=== PATIENT | female | born 1990 | race Two or more races ===

== ENCOUNTER 2018-11-08 12:12 | Emergency (ER) | payer BC ==
--- NOTE | 2018-11-08 13:33 | EDM.PDOC ---
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 Patient is a very poor historian. Initially reports to triage that her last menstrual period was October 14, 2018. Upon further interview with her it sounds as if her last normal menstrual period was the beginning of August. She reports mid September she had a shorter, rn advanced menstrual cycle. She reports now she is now been bleeding for the last week to week and a half. Reports her menstrual cycles are irregular. Reports that it was initially darker blood and then it lightened up. Now over the last 2 day she's bleeding more red blood. She is going to maybe 2-3 pads and a normal day. patient reports that she took 2 at home test a week apart beginning of October and these were both positive. She is a . She does not know her blood type and she may have received Rhogram in the past with previous ; she is not sure. Patient is reporting symptoms of nausea, headaches, vomiting and lightheadedness. She denies any urinary symptoms, syncope or back pain. She reports that she had some pain initially on the right side of her pelvis and is now located on the left side. Has been taking ibuprofen for the discomfort. Last took 600 mg of ibuprofen this morning. Patient is from [place]. Relocated to [place] about 2 months ago. She's not yet established with any DEHYDRATOR TENDER provider. Lower Abdominal Pain Score (Numeric/FACES): 1 - Related Data Allergies Allergy/AdvReac Type Severity Reaction Status Date / Time Penicillins Allergy Hives Verified 11/08/18 12:25 Home Meds: Home Meds Ibuprofen 200 mg PO Q6HR 11/08/18 [History] Past Medical History - Past Health History Medical/Surgical History: Denies Medical/Surgical History DEHYDRATOR TENDER History: Reports: , Spontaneous - Past Surgical History HEENT Surgical History: Reports: Oral Surgery, Tonsillectomy Social & Family History - Family History Family Medical History: Noncontributory - Tobacco Use Smoking Status *Q: Current Some Day Smoker Years of Tobacco use: 5 Packs/Tins Daily: 0.2 Used Tobacco, but Quit: No Second Hand Smoke Exposure: Yes - Caffeine Use Caffeine Use: Reports: Coffee, Energy Drinks, Soda, Tea - Recreational Drug Use Recreational Drug Use: Yes ED ROS GENERAL - Review of Systems Review Of Systems: See Below GI/Abdominal: Reports: Abdominal Pain (reports pain initally on the right lower quadrant not on the left lower quadrant), Nausea, Vomiting : Reports: No Symptoms, Other (vaginal bleeding ). Denies: Dysuria Musculoskeletal: Denies: Back Pain Neurological: Reports: Dizziness, Headache. Denies: Syncope ED EXAM - Physical Exam Exam: See Below Exam Limited By: No Limitations General Appearance: Alert, WD/WN, No Apparent Distress Ears: Normal External Exam Nose: Normal Inspection Throat/Mouth: Normal Inspection, Normal Voice Respiratory/Chest: No Respiratory Distress, Lungs Clear, Normal Breath Sounds Cardiovascular: Normal Peripheral Pulses, Regular Rate, Rhythm, No Murmur GI/Abdominal Exam: Normal Bowel Sounds, Soft, Tender (mild tenderness to the RLQ , suprapubic and LLQ areas) Neurological: Alert, Oriented, Normal Cognition Psychiatric: Normal Affect, Normal Mood Skin Exam: Warm, Dry, Normal Color Course - Vital Signs Last Recorded V/S: Last Vital Signs Temp 97.4 F 11/08/18 14:20 Pulse 84 11/08/18 14:20 Resp 18 11/08/18 14:20 BP 115/69 11/08/18 12:21 Pulse Ox 97 11/08/18 14:20 - Orders/Labs/Meds Orders: Active Orders 24 hr Category Date Time Status PATIENT RETYPE [BBK] Stat Lab 11/08/18 13:15 Results TYPE AND SCREEN [BBK] Stat Lab 11/08/18 13:15 Received Labs: Laboratory Tests 11/08/18 11/08/18 11/08/18 Range/Units 13:15 13:15 13:15 WBC 7.40 (3.98-10.04) K/mm3 RBC 4.41 (3.98-5.22) M/mm3 Hgb 13.2 (11.2-15.7) gm/L Hct 40.1 (34.1-44.9) % MCV 90.9 (79.4-94.8) fl MCH 29.9 (25.6-32.2) pg MCHC 32.9 (32.2-35.5) g/dl RDW Std Deviation 43.5 (36.4-46.3) fL Plt Count 385 H (182-369) K/mm3 MPV 8.9 L (9.4-12.3) fl Neut % (Auto) 58.0 (34.0-71.1) % Lymph % (Auto) 34.2 (19.3-51.7) % [place] % (Auto) 5.8 (4.7-12.5) % Eos % (Auto) 1.4 (0.7-5.8) Baso % (Auto) 0.5 (0.1-1.2) % Neut # (Auto) 4.29 (1.56-6.13) K/mm3 Lymph # (Auto) 2.53 (1.18-3.74) K/mm3 [place] # (Auto) 0.43 H (0.24-0.36) K/mm3 Eos # (Auto) 0.10 (0.04-0.36) K/mm3 Baso # (Auto) 0.04 (0.01-0.08) K/mm3 HCG, Quant < 1.0 mIU/mL Urine Color Yellow (Yellow) Urine Appearance Clear (Clear) Urine pH 7.5 (5.0-8.0) Ur Specific George 1.020 (1.005-1.030) Urine Protein Negative (Negative) Urine Glucose (UA) Negative (Negative) Urine Ketones Negative (Negative) Urine Occult Blood 3+ H (Negative) Urine Nitrite Negative (Negative) Urine Bilirubin Negative (Negative) Urine Urobilinogen 0.2 (0.2-1.0) Ur Leukocyte Esterase Negative (Negative) Urine RBC 5-10 H (0-5) /hpf Urine WBC 0-5 (0-5) /hpf Ur Epithelial Cells 0-5 (0-5) /hpf Urine Bacteria Few (FEW) /hpf Urine Mucus Not seen (FEW) /hpf Blood Type Gel Antibody Screen 11/08/18 Range/Units 13:15 WBC (3.98-10.04) K/mm3 RBC (3.98-5.22) M/mm3 Hgb (11.2-15.7) gm/L Hct (34.1-44.9) % MCV (79.4-94.8) fl MCH (25.6-32.2) pg MCHC (32.2-35.5) g/dl RDW Std Deviation (36.4-46.3) fL Plt Count (182-369) K/mm3 MPV (9.4-12.3) fl Neut % (Auto) (34.0-71.1) % Lymph % (Auto) (19.3-51.7) % [place] % (Auto) (4.7-12.5) % Eos % (Auto) (0.7-5.8) Baso % (Auto) (0.1-1.2) % Neut # (Auto) (1.56-6.13) K/mm3 Lymph # (Auto) (1.18-3.74) K/mm3 [place] # (Auto) (0.24-0.36) K/mm3 Eos # (Auto) (0.04-0.36) K/mm3 Baso # (Auto) (0.01-0.08) K/mm3 HCG, Quant mIU/mL Urine Color (Yellow) Urine Appearance (Clear) Urine pH (5.0-8.0) Ur Specific George (1.005-1.030) Urine Protein (Negative) Urine Glucose (UA) (Negative) Urine Ketones (Negative) Urine Occult Blood (Negative) Urine Nitrite (Negative) Urine Bilirubin (Negative) Urine Urobilinogen (0.2-1.0) Ur Leukocyte Esterase (Negative) Urine RBC (0-5) /hpf Urine WBC (0-5) /hpf Ur Epithelial Cells (0-5) /hpf Urine Bacteria (FEW) /hpf Urine Mucus (FEW) /hpf Blood Type A NEGATIVE Gel Antibody Screen Negative - Re-Assessments/Exams Free Text/Narrative Re-Assessment/Exam: 11/08/18 14:11 Reviewed the lab results with the patient. Blood type is A-, however, given her HCG of < 1.0 very unlikely she is miscarrying . Will not givev Rhogram at this time. Discharge instructions as documented. Departure - Departure Time of Disposition: 14:12 Disposition: Home, Self-Care 01 Condition: Good Clinical Impression: Menorrhagia - Discharge Information *PRESCRIPTION DRUG MONITORING PROGRAM REVIEWED*: No *COPY OF PRESCRIPTION DRUG MONITORING REPORT IN PATIENT BEATRIZ: No Instructions: Menorrhagia, [id number] Referrals: PCP,None [Primary Care Provider] - Rosana Reilly MD [Physician] - Forms: ED Department Discharge Additional Instructions: Follow-up with Ob. Recommend Dr. Reilly at [place]. Call [phone] to schedule with her. Drink plenty of fluids. Please return to the ER should your symptoms change or worsen. - My Orders Last 24 Hours: My Active Orders 11/08/18 13:15 PATIENT RETYPE [BBK] Stat TYPE AND SCREEN [BBK] Stat - Assessment/Plan Last 24 Hours: My Active Orders 11/08/18 13:15 PATIENT RETYPE [BBK] Stat TYPE AND SCREEN [BBK] Stat
== END 2018-11-08 14:19 | disposition home or self-care (01) ==
LOC: JD.ED 12:12
DX: N92.0 Excessive and frequent menstruation with regular cycle (principal); F17.210 Nicotine dependence, cigarettes, uncomplicated; Z88.0 Allergy status to penicillin
CPT/HCPCS: 36415; 81001; 84702; 85025; 86850; 86900; 86901; 99284